=== PATIENT | male | born 1955 | race African-American/Black ===

== ENCOUNTER 2019-01-08 18:57 | Inpatient (IN) ==
[2019-01-08] MEDS ORDERED: ZOFRAN IV ONE (23:10)
[2019-01-08] MEDS ORDERED: DILAUDID IV ONE (23:10)
[2019-01-08 23:57] LABS: BASO# 0.03 X1000 (0.0-0.2); BASO% 0.3 % (0.0-0.8); EOS# 0.31 X1000 (0.0-0.7); HEMATOCRIT 40.5 % (42.0-52.0); HEMOGLOBIN 13.8 g/dL (14.0-18.0); IMM GRAN# 0.03 X1000 (0.0-0.04); IMM GRAN% 0.3 % (0.0-0.5); LYMPH# 1.49 X1000 (1.2-3.4); LYMPH% 14.4 % (20.5-51.1); MCH 29.7 PG (27-31); MCHC 34.1 g/dL (33-37); MCV 87.3 FL (81-99); MONO# 1.39 X1000 (0.11-0.59); MONO% 13.5 % (1.7-9.3); MPV 10.4 FL (7.4-10.4); NEUT# 7.08 X1000 (1.4-6.5); NEUT% 68.5 % (42.2-75.2); PLT 292 X1000 (130-400); RBC 4.64 XMIL (4.7-6.1); RDW 14.5 % (11.5-14.5); WBC 10.33 X1000 (4.8-10.8)
[2019-01-09 00:07] LABS: INR 1.2; PROTIME 15.4 Seconds (11.0-16.0)
[2019-01-09 00:08] LABS: PTT 30.2 Seconds (22.3-41.8)
[2019-01-09 00:13] LABS: AMYLASE 40 U/L (20-200); LIPASE 33 U/L (13-60)
[2019-01-09 00:28] LABS: CREATININE 2.2 mg/dL (0.7-1.2); TOTAL BILIRUBIN 0.56 mg/dL (0.20-1.00); TOTAL PROTEIN 7.8 g/dL (6.3-8.3)
[2019-01-09 00:29] LABS: URINE SOURCE CLEAN CATCH
[2019-01-09 00:29] LABS: ALB/GLOB RATIO 0.6
[2019-01-09 00:55] LABS: BILIRUBIN URINE NEGATIVE (NEGATIVE); BLOOD URINE TRACE (NEGATIVE); COLOR YELLOW; GLUCOSE URINE NEGATIVE (NEGATIVE); KETONE URINE NEGATIVE (NEGATIVE); LEUKOCYTES URINE LARGE (NEGATIVE); NITRITE URINE NEGATIVE (NEGATIVE); PROTEIN URINE 30 mg/dL (NEGATIVE); SP GRAVITY URINE 1.021; TURBIDITY URINE CLEAR (CLEAR); UROBILINOGEN URINE NORMAL (NORMAL)
[2019-01-09 01:09] LABS: UR EPITHELIAL CELLS >10 /HPF (<10); URINE BACTERIA NEGATIVE /HPF; URINE RBC <10 /HPF (<10); URINE WBC TNTC /HPF (<10)
[2019-01-09 01:21] LABS: URINE CASTS GRANULAR PRESENT; URINE CRYSTALS NONE SEEN; URINE SMALL ROUND CELLS NONE SEEN; URINE YEAST NONE SEEN
--- NOTE | 2019-01-09 01:50 | PROVIDER DOCUMENTATION ---
This chart was entered by Eloise Morrison Scribe, acting as scribe for Doc Renee MD. HPI-Rash/Wound/ReCheck - General Chief Complaint: Sores/Lesions Stated Complaint: CELLULITIS IN LEGS Time Seen by Provider: 01/08/19 22:27 Source: patient, family Allergies/Adverse Reactions: Allergies Allergy/AdvReac Type Severity Reaction Status Date / Time No Known Allergies Allergy Verified 05/10/18 19:24 Home Medications: Home Medication List Medication Instructions Recorded Confirmed Last Taken Type Cyclobenzaprine [Flexeril] 10 mg PO TID PRN PRN #60 tab 05/31/18 Unknown Rx Furosemide [Lasix] 40 mg PO DAILY PRN #30 tab 05/31/18 Unknown Rx LISINOpril [Prinivil] 10 mg PO DAILY #30 tab 05/31/18 Unknown Rx Melatonin 3 mg PO HS PRN PRN #30 tab 05/31/18 Unknown Rx Metoprolol [Lopressor] 25 mg PO DAILY #30 tab 05/31/18 Unknown Rx Oxycodone HCl/Acetaminophen 1 ea PO Q6H PRN #30 tab 05/31/18 Unknown Rx [Percocet 7.5-325 mg Tablet] - History of Present Illness-Dermatology Nature of Presenting Problem: 63 yom presents w/family to ed w/cc bilat LE cellultis for approx 1 yr intermittent but becoming worse the past 3 months. pt family sts pt was followed by wound care and cellulitis had cleared up but came back. family sts pt has been using alcohol and paper towels and wraps legs up. pt has refused tx, most recently family called ems and pt refused to go. pt has 1x vomiting episode in e r w/blood and black coffee ground emesis. pt has had gerd today, been belching, family gave pepcid. pt rn rpts when pt stood from wheelchair there was blood in wheelchair, unsure if rectal bleed. pt was in hospital 6-8wks in june. denies n/d, fever and chills. Location: reports: lower extremity (cellulitis LE bilat) Quality: reports: painful Severity: reports: moderate Onset/Duration: reports: other (1 yr intermittent, 3 months became worse) Timing: reports: still present Context/Associated Symptoms: reports: other (cellulitis) Identifiable cause?: Yes Review of Systems - Adult - REVIEW OF SYSTEMS - ADULT Constitutional: reports: no symptoms reported. denies: chills, fever, fatique Eyes: reports: no symptoms reported Ears, Nose, Mouth & Throat: reports: no symptoms reported Cardiovascular: reports: no symptoms reported Respiratory: reports: no symptoms reported Gastrointestinal: reports: see HPI, hematemesis, vomiting, other (bleeding when standing from wheelchair in er, unsure if rectal bleed). denies: abdominal pain, diarrhea, nausea Genitourinary: reports: no symptoms reported Musculoskeletal: reports: no symptoms reported Integumentary: reports: see HPI, other (bilat LE cellulitis). denies: hives, itching, rash Neurological: reports: no symptoms reported Psychiatric: reports: no symptoms reported Endocrine: reports: no symptoms reported Hematologic/Lymphatic: reports: no symptoms reported Allergic/Immunologic: reports: no symptoms reported All Other Systems: Reviewed and Negative Past History - Adult - PAST MEDICAL HISTORY-ADULT Review of Records: reports: Old Records Reviewed, Nursing Assessment Review, Medications Reviewed, Social history reviewed & non-contributory. Major Childhood Illnesses: reports: denies history Cardiovascular: reports: HTN Respiratory: reports: denies history Gastrointestinal: reports: denies history Obstetrical/Gynecological: reports: denies history Genitourinary: reports: denies history Musculoskeletal: reports: other (pitting pedal edema and gout) Neurological: reports: denies history Endocrine/Immune: reports: denies history Other Conditions: reports: denies history - PRIOR SURGERIES/PROCEDURES Surgical/Procedure History: reports: none - IMMUNIZATION STATUS Childhood Immunizations: See Nurse Assessment Flu Vaccine: See Nurse Assessment - FAMILY HISTORY Family History: reviewed, not pertinent - SOCIAL HISTORY Smoking: non-smoker Substance Use: alcohol Alcohol Use Frequency: every day Physical Exam-General - PHYSICAL EXAM-ADULT Initial Vital Signs Reviewed: Yes - CONSTITUTIONAL General Appearance: alert, mild distress. negative: cachetic, lethargic, slow to respond - EYES Eyes: PERRL/EOMI, pink conjunctivae - HEAD, EARS, NOSE, MOUTH & THROAT HENMT: normocephalic/atraumatic, moist mucous membranes, normal ENT inspection - NECK Neck: non-tender, full range of motion, supple, normal inspection - RESPIRATORY Respiratory: chest non-tender, lungs clear, normal breath sounds - CARDIOVASCULAR Cardiovascular: normal peripheral pulses, regular rate, rhythm - GASTROINTESTINAL (ABDOMEN) Abdominal Exam: normal bowel sounds, non tender, soft - GENITOURINARY Rectal Exam: other (+2 skin breakdown on buttocks). negative: normal exam - LYMPHATIC Lymphatic: no adenopathy - MUSCULOSKELETAL Back Exam: normal inspection, no CVA tenderness, no vertebral tenderness Extremity: normal range of motion, erythema (bilat le), inflammation (bilat le), pedal edema (bilat), tenderness (bilat le), other (bilat LE cellulitis). negative: non-tender, normal inspection, abnormal NV exam Peripheral Pulses: radial (R): 2+, radial (L): 2+ - SKIN Integumentary: normal color, normal turgor, warm/dry - NEUROLOGIC Neurologic: grossly normal, no motor/sensory deficits - PSYCHIATRIC Psych/Mental Status: normal mood/affect, normal thought content, normal thought process, oriented x 3, anxious. negative: disheveled, depressed affect, paranoid Progress - PLAN OF CARE/RESULTS Progress/Plan/Lab Results: Vital Signs - 8 hr 01/08/19 19:06 01/08/19 23:13 Temperature 98 F Pulse Rate 64 78 Respiratory Rate 15 20 Blood Pressure 116/74 144/89 O2 Sat by Pulse Oximetry 99 98 01/09/19 01:01 Gastric Occult Blood - Final Gastric Fluid Laboratory Results - last 24 hr 01/08/19 01/08/19 01/08/19 23:28 23:28 23:28 WBC 10.33 RBC 4.64 L Hgb 13.8 L Hct 40.5 L MCV 87.3 MCH 29.7 MCHC 34.1 RDW Std Deviation 14.5 Plt Count 292 MPV 10.4 Immature Gran % (Auto) 0.3 Neut % (Auto) 68.5 Lymph % (Auto) 14.4 L [place] % (Auto) 13.5 H Eos % (Auto) 3.0 Baso % (Auto) 0.3 Immature Gran # (Auto) 0.03 Neut # (Auto) 7.08 H Lymph # (Auto) 1.49 [place] # (Auto) 1.39 H Eos # (Auto) 0.31 Baso # (Auto) 0.03 PT INR PTT (Actin FS) Sodium Potassium Chloride Carbon Dioxide Anion Gap BUN Creatinine Estimated GFR/1.73 m2 BUN/Creatinine Ratio Glucose Calculated Osmolality Calcium Total Bilirubin AST ALT Alkaline Phosphatase Troponin T 0.055 Total Protein Albumin Globulin Albumin/Globulin Ratio Amylase 40 Lipase 33 Urine Source Urine Color Urine Turbidity Urine pH Ur Specific [place] Urine Protein Ur Glucose (Stick) Ur Ketones (Stick) Urine Blood Urine Nitrite Urine Bilirubin Urobilinogen Dipstick Urine Leukocytes Urine WBC (Auto) Urine RBC (Auto) U Epithel Cells (Auto) Urine Bacteria (Auto) Urine Crystals Small Round Cells Urine Casts Urine Yeast-like Cells 01/08/19 01/08/19 01/09/19 23:28 23:28 00:11 WBC RBC Hgb Hct MCV MCH MCHC RDW Std Deviation Plt Count MPV Immature Gran % (Auto) Neut % (Auto) Lymph % (Auto) [place] % (Auto) Eos % (Auto) Baso % (Auto) Immature Gran # (Auto) Neut # (Auto) Lymph # (Auto) [place] # (Auto) Eos # (Auto) Baso # (Auto) PT 15.4 INR 1.20 PTT (Actin FS) 30.2 Sodium 131 L Potassium 4.0 Chloride 93 L Carbon Dioxide 16 L Anion Gap 22 BUN 48 H Creatinine 2.2 H Estimated GFR/1.73 m2 37 BUN/Creatinine Ratio 22 Glucose 73 Calculated Osmolality 274 Calcium 8.0 L Total Bilirubin 0.56 AST 34 ALT 21 Alkaline Phosphatase 101 Troponin T Total Protein 7.8 Albumin 3.0 L Globulin 4.8 Albumin/Globulin Ratio 0.6 Amylase Lipase Urine Source CLEAN CATCH Urine Color YELLOW Urine Turbidity CLEAR Urine pH 6.0 Ur Specific [place] 1.021 Urine Protein 30 A Ur Glucose (Stick) NEGATIVE Ur Ketones (Stick) NEGATIVE Urine Blood TRACE A Urine Nitrite NEGATIVE Urine Bilirubin NEGATIVE Urobilinogen Dipstick NORMAL Urine Leukocytes LARGE A Urine WBC (Auto) TNTC A Urine RBC (Auto) <10 U Epithel Cells (Auto) >10 A Urine Bacteria (Auto) NEGATIVE Urine Crystals NONE SEEN Small Round Cells NONE SEEN Urine Casts GRANULAR PRESENT Urine Yeast-like Cells NONE SEEN Orders Category Date Time Status AMYLASE [CHEM] Stat Lab 01/08/19 23:28 Completed CBC WITH DIFF [HEME] Stat Lab 01/08/19 23:28 Completed COMPREHENSIVE METABOLIC PANEL [CHEM] Stat Lab 01/08/19 23:28 Completed LIPASE [CHEM] Stat Lab 01/08/19 23:28 Completed OCCULT BLOOD NON-FECES Stat Lab 01/09/19 01:01 Completed PROTIME WITH INR [COAG] Stat Lab 01/08/19 23:28 Completed PTT [COAG] Stat Lab 01/08/19 23:28 Completed TROPONIN T Stat Lab 01/08/19 23:28 Completed URINALYSIS W/POSS RFLX CULT [URINALYSIS] Stat Lab 01/09/19 00:11 Completed URINE CULTURE [RM] Routine Lab 01/09/19 01:11 Received URINE MANUAL MICROSCOPIC [URINALYSIS] Stat Lab 01/09/19 00:11 Completed Hydromorphone [Dilaudid] Med 01/08/19 23:10 Discontinued 1 mg IV NOW ONE Ondansetron [Zofran] Med 01/08/19 23:10 Discontinued 4 mg IV NOW ONE EKG [EKG] Stat Ther 01/08/19 22:29 Ordered Result Diagrams: 01/08/19 23:28 01/08/19 23:28 - CONSULTS/PCP/HOSPITALIST Notification #1 *Consult/PCP/Hospitalist*: Dr Kenny Time Discussed: 01:48 Consult Disposition: Will see in ED, Admit Departure - Departure Date of Disposition Decision: 01/09/19 Time of Disposition Decision: 01:48 DIAGNOSIS: Cellulitis, UTI (urinary tract infection), Renal insufficiency, Hyponatremia, Decubitus ulcer, GI bleeding Disposition: ADMITTED INPATIENT 09 Certified Medical Emergency: Emergent Condition: Fair Referrals and Follow-Ups: Delmer Platt MD [Primary Care Provider] - - Critical Care Note This patient required my direct & personal management of CC.: Yes Attestation - Physician/ JOLLY Attestation Patient care was provided by Advanced Practice Provider:: No The physician spent face to face time with patient:: Yes Advanced Practice Provider documentation review:: Supervising physician onsite and consulted in the evaluation and care of this patient. The physician did have a face to face encounter with the patient. This chart was documented by the indicated scribe, (Eloise Morrison Scribe) and accurately reflects the services I performed and decisions made by me, Doc Renee MD, as attested by the provider's signature.
[2019-01-09] MEDS ORDERED: SODIUM CHLORIDE 0.9% INJ ONE (01:51)
[2019-01-09] MEDS ORDERED: PROTONIX IV ONE (01:51)
--- NOTE | 2019-01-09 03:50 | HISTORY AND PHYSICAL ---
PRIMARY CARE PHYSICIAN: None. CHIEF COMPLAINT: Lower extremity edema and tenderness. HISTORY OF PRESENTING ILLNESS: A 63-year-old male with a history of hypertension had presented to emergency department with 6 months history of worsening lower extremity edema and erythema. The patient apparently moved from [place] and apparently has not been able to find a doctor. However, he has been going to Wound Care, he states and they had him put on compression stockings. He was evaluated in the emergency department. It seems that he had moderate edema and possibly venous stasis. It seems that his skin has sloughed off from his lower extremity and seems to be infected. Due to his presenting symptoms, he will require admission for further management. At the time of my examination, he had denied any headache, fever, chills, chest pain, shortness of breath or any weight changes, but complained of lower extremity edema and tenderness. PAST MEDICAL HISTORY: Includes hypertension. PAST SURGICAL HISTORY: None. ALLERGIES: No known drug allergies. CURRENT MEDICATIONS: He does not recall and nursing staff will reconcile. SOCIAL HISTORY: No history of smoking. Admits to social alcohol use. Denies any illicit drug use. FAMILY HISTORY: No history of coronary artery disease. REVIEW OF SYSTEMS: Fourteen point review of systems as listed in HPI. Other systems negative. PHYSICAL EXAMINATION: GENERAL: Cooperative, friendly male. He is resting comfortably now. VITAL SIGNS: Temperature 98.0 degrees, pulse 64 respiration 15, blood pressure 116/74. HEENT: Atraumatic, normocephalic. Extraocular movements intact. PERRLA. NECK: No masses. CHEST: Clear to auscultation. CARDIOVASCULAR: Regular rate and rhythm. ABDOMEN: Soft. Positive bowel sounds. EXTREMITIES: Moderate edema and erythema. Seems that the skin has sloughed off his legs. GENITOURINARY: No bladder distention. SKIN: Warm. LABORATORIES AND STUDIES: WBC 10.33, hemoglobin 13.8, hematocrit 40.5, platelets 292,000. Sodium 141, potassium 4.0, chloride 93, CO2 is 16, BUN is 48, creatinine is 2.2, glucose is 73. ASSESSMENT: A 63-year-old male with a history of hypertension who had presented to emergency department with a 6-month history of worsening lower extremity edema and erythema. It seems that his skin has sloughed off of his legs and this seems infected also. Due to his presenting symptoms, he will require admission for further management. 1. Bilateral lower extremity cellulitis and edema. 2. Hypertension. 3. Acute kidney injury. PLAN: 1. We will admit patient to medical floor with telemetry. 2. We will check wound cultures. Start patient on IV antibiotics. 3. We will consult Wound Care. 4. We will monitor blood pressure closely. 5. We will monitor his renal function. Continue with gentle hydration. 6. We will continue to follow, and reassess and make further recommendation based on patient's clinical course. cc: Gerald Kenny MD
[2019-01-09] MEDS ORDERED: LASIX PO PRN (06:12)
[2019-01-09] MEDS ORDERED: VANCOMYCIN IV PER PHARMACY MISC SCH (06:12)
[2019-01-09] MEDS: PERCOCET-5 PO PRN (07:04)
[2019-01-09] MEDS: NS 1,000 ML IV SCH ×2 (07:05→21:52)
[2019-01-09] MEDS: ROCEPHIN 1 GM in NS 50 ML IV SCH (07:05)
[2019-01-09] MEDS ORDERED: VANCOMYCIN 2,300 MG in NS 500 ML IV ONE (09:00)
[2019-01-09] MEDS: LOPRESSOR PO SCH (09:33)
[2019-01-09] MEDS: PRINIVIL PO SCH (09:33)
[2019-01-09] MEDS ORDERED: DILAUDID IV STA (10:39)
[2019-01-09] MEDS ORDERED: NS 500 ML IV ONE (17:20)
[2019-01-09] MEDS ORDERED: NS 500 ML ONE (17:22)
[2019-01-10] MEDS: PERCOCET-5 PO PRN ×3 (00:14→20:12)
[2019-01-10] MEDS ORDERED: NS 250 ML IV ONE (05:14)
[2019-01-10] MEDS: ROCEPHIN 1 GM in NS 50 ML IV SCH (06:37)
[2019-01-10 07:22] LABS: BASO# 0.03 X1000 (0.0-0.2); BASO% 0.4 % (0.0-0.8); EOS# 0.42 X1000 (0.0-0.7); EOS% 5.3 % (0.0-10.0); HEMATOCRIT 31.1 % (42.0-52.0); HEMOGLOBIN 10.7 g/dL (14.0-18.0); IMM GRAN# 0.02 X1000 (0.0-0.04); IMM GRAN% 0.3 % (0.0-0.5); LYMPH# 1.13 X1000 (1.2-3.4); LYMPH% 14.2 % (20.5-51.1); MCH 30.2 PG (27-31); MCHC 34.4 g/dL (33-37); MCV 87.9 FL (81-99); MONO# 1.17 X1000 (0.11-0.59); MONO% 14.7 % (1.7-9.3); MPV 10.2 FL (7.4-10.4); NEUT# 5.18 X1000 (1.4-6.5); NEUT% 65.1 % (42.2-75.2); PLT 266 X1000 (130-400); RBC 3.54 XMIL (4.7-6.1); RDW 14.3 % (11.5-14.5); WBC 7.95 X1000 (4.8-10.8)
[2019-01-10 07:28] LABS: CALCIUM 7.5 mg/dL (8.8-10.2); CREATININE 1.8 mg/dL (0.7-1.2)
[2019-01-10] MEDS: PRINIVIL PO SCH (10:10)
[2019-01-10] MEDS: LOPRESSOR PO SCH ×2 (10:17→16:29)
[2019-01-10] MEDS ORDERED: KLOR-CON PO ONE (10:49)
[2019-01-10] MEDS ORDERED: TEFLARO IV SCH (11:00)
--- NOTE | 2019-01-10 13:54 | PROGRESS NOTE ---
DATE: 01/10/2019 SUBJECTIVE: The patient reports feeling better. Denies any fever or chills. OBJECTIVE: Vital Signs: Temperature 97.4 degrees, heart rate 79, respiratory rate 22, blood pressure 102/48, O2 saturation 95% on room air. General: This is a chronically ill-appearing and obese 63-year-old male lying in bed, in no acute distress. Cardiovascular: S1, S2 heard. No murmurs, gallops, or rubs. Regular rate and rhythm. Respiratory: Clear bilaterally to auscultation. No work of breathing or using accessory muscles. Abdomen: Soft, nontender to palpation. Bowel sounds present. No organomegaly. Extremities: Moderate edema and erythema in both lower extremities. Those are covered by dressing right now. Peripheral pulses present. Neurological: Patient alert, oriented x3. Moves 4 extremities. LABORATORY DATA: Showed white cell count 7.97, hemoglobin 10.7, hematocrit 31.1, platelets 266,000. Potassium 3.0, sodium 131, creatinine 1.8. ASSESSMENT AND PLAN: 1. Bilateral lower extremity cellulitis and edema. I have changed antibiotics. In this case, the patient has been on vancomycin and ceftriaxone. Because of the renal function, I changed to Teflaro and Zosyn renally dosed both medications. We will continue with the same management. 2. Acute kidney injury getting better. We are going to avoid any nephrotoxic medications. I will adjust antibiotics accordingly. 3. Hypertension. Blood pressure is under control. Actually it is borderline in the 100s, some 90s so we are not going to make any changes to his current treatment. 4. Disposition. We will continue to monitor this patient closely. cc: Marshal Paulson MD
[2019-01-10] MEDS: NS 1,000 ML IV SCH (14:33)
[2019-01-10] MEDS: ZOSYN 2.25 GM in NS 50 ML IV SCH ×2 (14:34→20:17)
[2019-01-10] MEDS: TEFLARO 400 MG in NS 250 ML IV SCH (14:35)
[2019-01-10] MEDS ORDERED: VANCOMYCIN 2,000 MG in NS 500 ML IV SCH (21:00)
[2019-01-11] MEDS: TEFLARO 400 MG in NS 250 ML IV SCH (00:45)
[2019-01-11] MEDS: ZOSYN 2.25 GM in NS 50 ML IV SCH ×2 (02:24→09:58)
[2019-01-11] MEDS: PERCOCET-5 PO PRN ×3 (02:24→22:08)
[2019-01-11] MEDS: LOPRESSOR PO SCH ×4 (03:08→20:29)
[2019-01-11 06:59] LABS: HEMATOCRIT 30.7 % (42.0-52.0); HEMOGLOBIN 10.4 g/dL (14.0-18.0); MCH 30.1 PG (27-31); MCHC 33.9 g/dL (33-37); MPV 9.9 FL (7.4-10.4); RBC 3.45 XMIL (4.7-6.1); RDW 14.5 % (11.5-14.5); WBC 6.61 X1000 (4.8-10.8)
[2019-01-11 07:26] LABS: AGAP 9; BUN 36 mg/dL (8-22); CALCIUM 8.1 mg/dL (8.8-10.2); CHLORIDE 113 mmol/L (98-107); COSMO 287; CREATININE 1.1 mg/dL (0.7-1.2); ESTIMATED GFR > 60; GLUCOSE 113 mg/dL (70-104); POTASSIUM 3.9 mmol/L (3.5-5.1); SODIUM 139 mmol/L (136-145); TCO2 17 mmol/L (25-35)
[2019-01-11] MEDS: NS 1,000 ML IV SCH ×3 (09:56→22:11)
--- NOTE | 2019-01-11 11:14 | PROGRESS NOTE ---
DATE: 01/11/2019 SUBJECTIVE: The patient reports feeling fine. He does reports some muscle cramping that started yesterday. OBJECTIVE: Vital Signs: Temperature 98.5, heart rate 77, respiratory rate 20, blood pressure 106/55, O2 saturation 95% on room air. General Examination: This is a chronically ill-appearing and morbidly obese, 63-year-old, male, lying in bed, in no acute distress. HEENT: Head is normocephalic and atraumatic. Cardiovascular Examination: S1 and S2 heard. No murmurs, gallops, or rubs. Regular rate and rhythm. Respiratory Examination: Clear bilaterally to auscultation. No work of breathing or using accessory muscles. Abdomen: Soft, nontender to palpation. Bowel sounds present. No organomegaly. Extremities: Moderate edema and erythema in both lower extremities. Those are covered by dressings now. Peripheral pulses present. Neurological Examination: The patient is alert and oriented x3. Moves 4 extremities. Laboratory Data: Reviewed. Hemoglobin is 10.4, hematocrit 30.7. BMP that shows normal renal function. ASSESSMENT AND PLAN: 1. Bilateral lower extremity cellulitis and edema. The patient is on Teflaro and Zosyn, both renally dosed. Because renal function is back to normal, I think we are going to change to full doses of both medications. 2. Acute kidney injury, resolved. 3. Hypertension. Blood pressure is under control. We will continue with the same management. 4. Disposition. At this point, considering his extensive cellulitis, I prefer to go ahead and consult infectious disease to see for how long he is going to need antibiotics and also if followup in the office is needed. cc: Marshal Paulson MD
[2019-01-11] MEDS ORDERED: TEFLARO 600 MG in NS 250 ML IV SCH (13:00)
--- NOTE | 2019-01-11 15:35 | INFECTIOUS DISEASE CONSULT REP ---
DATE: 01/11/[address] the white mccormick CONCLUSION: Patient is admitted the hospital with bilateral cellulitis. RECOMMENDATIONS: I have discontinued ceftaroline and Zosyn and instead I put the patient on a combination of p.o. Zyvox and IV cefepime pending culture results. I have ordered that culture should be taken from each leg. Also I have ordered for the foot of the bed to remain elevated with the manual Gatch continuously. Finally, I have requested that the nurses page me so I can see the patient's next dressing change. DISCUSSION: The patient has a 6 month history of bilateral leg cellulitis. He came to the emergency room and he was hospitalized at [facility]. His CBC shows a white count of 6610, hemoglobin 10.4, and platelet count 261,000. Creatinine is 1.1. GFR is greater than 60. Urine culture was negative. PAST MEDICAL HISTORY/REVIEW OF SYSTEMS: Eyes and ears: He does not have any problems seeing or hearing. Neck: No stiffness. Respiratory: No cough or shortness of breath. Cardiac: No chest pain or palpitations. GI: No nausea, vomiting, or diarrhea. : No dysuria or flank pain. Bones, joints and muscles: See present illness. Neurologic: No seizures. No loss of motor or sensory function. PREVIOUS HOSPITALIZATIONS AND OPERATIONS: He has been admitted before with leg cellulitis. MEDICAL DISEASES: Patient has obesity and hypertension. INFECTIOUS DISEASE HISTORY: Positive for leg cellulitis. Negative for pneumonia. FAMILY HISTORY: Positive for diabetes mellitus, hypertension and myocardial infarction. SOCIAL HISTORY: The patient lives with his daughter. He is . 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 He told me that he drinks alcoholic beverages but he does not smoke cigarettes or abuse drugs. ALLERGIES: He has no known drug allergies. MEDICATIONS: Taken at home include Lasix, gabapentin, Prinivil, loratadine, Lopressor and oxycodone. PHYSICAL EXAMINATION: Vital Signs: Temperature is 98.2 degrees, pulse 75, respirations 14, blood pressure 125/67. The patient is 5 feet 11 inches tall, weighs 270 pounds. General: This is an obese, middle-aged male. He is in no acute distress. Head/eyes/ears/nose/throat: He can hear my spoken words and see near objects. I do not see any white patches in his mouth. Neck: No meningismus. Lungs: Clear to auscultation. Cardiovascular: Heart rate is regular. Abdomen: Soft and nontender. In the right lower quadrant, there is some scarring due to trauma. Extremities: Both legs have dressings on them. The dressings are intact. As I mentioned earlier, I have requested the nurses to page me tomorrow when the patient's legs and legs when the patient's legs dressings are changed. Neurologic: The patient is alert. He can move his extremities. There is no tremor. His sensation is intact to touch. His memory as regarding his medical history seemed to be intact. Thank you for the consult. cc: Santiago Gao MD
[2019-01-11] MEDS ORDERED: ZOSYN 3.375 GM in NS 50 ML IV SCH (16:00)
[2019-01-11] MEDS: MAXIPIME 2 GM in NS 100 ML IV SCH (16:04)
[2019-01-11] MEDS: ZYVOX PO SCH (18:53)
[2019-01-12] MEDS: PERCOCET-5 PO PRN ×3 (01:56→23:29)
[2019-01-12] MEDS: NS 1,000 ML IV SCH ×2 (03:31→18:34)
[2019-01-12] MEDS: MAXIPIME 2 GM in NS 100 ML IV SCH ×2 (03:37→16:34)
[2019-01-12] MEDS: ZYVOX PO SCH ×2 (06:18→16:34)
[2019-01-12 06:41] LABS: HEMATOCRIT 34.1 % (42.0-52.0); HEMOGLOBIN 11.2 g/dL (14.0-18.0); MCH 30.5 PG (27-31); MCHC 32.8 g/dL (33-37); MCV 92.9 FL (81-99); MPV 9.9 FL (7.4-10.4); RBC 3.67 XMIL (4.7-6.1); RDW 14.9 % (11.5-14.5); WBC 5.75 X1000 (4.8-10.8)
[2019-01-12 06:56] LABS: AGAP 7; BUN 23 mg/dL (8-22); CALCIUM 8.4 mg/dL (8.8-10.2); CHLORIDE 112 mmol/L (98-107); COSMO 277; CREATININE 0.8 mg/dL (0.7-1.2); ESTIMATED GFR > 60; GLUCOSE 82 mg/dL (70-104); POTASSIUM 4.2 mmol/L (3.5-5.1); SODIUM 137 mmol/L (136-145); TCO2 18 mmol/L (25-35)
[2019-01-12] MEDS: LOPRESSOR PO SCH ×2 (10:14→18:34)
[2019-01-12] MEDS ORDERED: DILAUDID IV PRN (13:21)
[2019-01-12] MEDS: DILAUDID IV PRN (13:45)
--- NOTE | 2019-01-12 16:23 | PROGRESS NOTE ---
DATE: 01/12/2019 SUBJECTIVE: Patient reports feeling fine. Reports some muscle cramping today. OBJECTIVE: Vital Signs: Temperature 97.9 degrees, heart rate 75, respiratory 19, blood pressure 100/30, O2 saturation 97% on room air. General: This is a chronically ill-appearing morbidly obese 63-year-old male lying in bed in no acute distress. Cardiovascular: S1, S2 heard. No murmurs, gallops, or rubs. Regular rate and rhythm. Respiratory: Clear bilaterally to auscultation. No work of breathing or using accessory muscles. Abdomen: Soft, nontender to palpation. Bowel sounds present. No organomegaly. Extremity: Moderate edema and erythema in both lower extremity covered by dressing now, peripheral pulses present in both feet. Neurologic: Patient alert, oriented x3. Moves 4 extremities. LABORATORY DATA: Reviewed. ASSESSMENT AND PLAN: 1. Bilateral lower extremity cellulitis and edema. Infectious disease has been consulted and they changed antibiotics to cefepime and Zyvox p.o. will continue with same management. Will check with them tomorrow to see for how long he needs to stay in the hospital. 2. Acute kidney injury resolved. 3. Hypertension. Blood pressure is under control. Will continue with same management. 4. Disposition. At this point will continue with the same antibiotics directed by ID and will check with them for how long he needs to be on those. cc: Marshal Paulson MD
[2019-01-12] MEDS: ROBAXIN PO SCH (18:35)
[2019-01-13] MEDS: NS 1,000 ML IV SCH ×3 (01:19→19:58)
[2019-01-13] MEDS: MAXIPIME 2 GM in NS 100 ML IV SCH ×2 (03:33→17:10)
[2019-01-13] MEDS: ZYVOX PO SCH ×2 (05:07→17:11)
[2019-01-13] MEDS: DILAUDID IV PRN (06:52)
[2019-01-13 07:05] LABS: HEMATOCRIT 30.7 % (42.0-52.0); HEMOGLOBIN 10.2 g/dL (14.0-18.0); MCHC 33.2 g/dL (33-37); MCV 93.3 FL (81-99); MPV 9.7 FL (7.4-10.4); RBC 3.29 XMIL (4.7-6.1); RDW 14.9 % (11.5-14.5); WBC 5.85 X1000 (4.8-10.8)
[2019-01-13 07:15] LABS: AGAP 5; BUN 17 mg/dL (8-22); CALCIUM 8.1 mg/dL (8.8-10.2); CHLORIDE 114 mmol/L (98-107); COSMO 277; CREATININE 0.8 mg/dL (0.7-1.2); ESTIMATED GFR > 60; GLUCOSE 88 mg/dL (70-104); POTASSIUM 4.2 mmol/L (3.5-5.1); SODIUM 138 mmol/L (136-145); TCO2 19 mmol/L (25-35)
[2019-01-13] MEDS: ROBAXIN PO SCH ×3 (10:08→17:10)
[2019-01-13] MEDS: LOPRESSOR PO SCH ×3 (10:12→20:23)
--- NOTE | 2019-01-13 14:00 | PROGRESS NOTE ---
DATE: 01/13/2019 SUBJECTIVE: The patient reports feeling fine. Muscle cramps are much better now. OBJECTIVE: Vital Signs: Temperature 98.0, heart rate 70, respiratory rate 18, blood pressure 120/66, O2 saturation 97% on room air. General Examination: This is a chronically ill-appearing, 63-year-old, male, lying in bed, in no acute distress. Cardiovascular Examination: S1 and S2 heard. No murmurs, gallops, or rubs. Regular rate and rhythm. Respiratory Examination: Clear bilaterally to auscultation. No work of breathing or using accessory muscles. Abdomen: Soft, nontender to palpation. Bowel sounds present. No organomegaly. Extremities: Moderate edema and erythema in both lower extremities. Those are covered by dressings right now. Peripheral pulses present in both feet. Neurological Examination: The patient is alert and oriented x3. Moves 4 extremities. Laboratory Data: Reviewed. ASSESSMENT AND PLAN: 1. Bilateral lower extremity cellulitis and edema. I talked with Dr. Gao today about further plans for this patient. Currently, he is on cefepime and Zyvox. Yesterday, we took cultures from both wounds and gram-positive cocci are growing. Our plan is to wait until tomorrow to see what kind of bacteria is growing and then we will come up with a plan on what antibiotics we are going to use and for how long, so we are planning to most likely discharge him tomorrow. 2. Acute kidney injury, resolved. 3. Hypertension. Blood pressure is well controlled with current management. We are not going to make any changes. 4. Disposition. I think at this point, we have a plan to wait for wound cultures to see what bacteria they show and we will go from there. cc: Marshal Paulson MD
[2019-01-13] MEDS: MORPHINE IV PRN ×2 (15:01→20:00)
[2019-01-14] MEDS: MORPHINE IV PRN ×4 (00:47→20:24)
[2019-01-14] MEDS: PERCOCET-5 PO PRN ×2 (03:43→21:46)
[2019-01-14] MEDS: MAXIPIME 2 GM in NS 100 ML IV SCH ×2 (03:45→15:39)
[2019-01-14] MEDS: ZYVOX PO SCH ×2 (05:05→17:28)
[2019-01-14] MEDS: ROBAXIN PO SCH ×3 (09:02→17:28)
[2019-01-14] MEDS: LOPRESSOR PO SCH ×3 (09:02→20:31)
[2019-01-14] MEDS: NS 1,000 ML IV SCH ×2 (09:02→22:25)
--- NOTE | 2019-01-14 10:41 | PROGRESS NOTE ---
DATE: 01/14/2019 SUBJECTIVE: Patient reports feeling fine. Still some muscle cramps noted but his cramps are better. OBJECTIVE: Vital Signs: Temperature 97.8 degrees, heart rate 107, respiratory rate 22, blood pressure 126/68, O2 saturation 99% on room air. General: This is a chronically ill-appearing 63- year-old male, lying in bed, in no acute distress. HEENT: Head is normocephalic, atraumatic. Neck: No JVD noted. No carotid bruits. No lymphadenopathy. No thyromegaly. Cardiovascular: S1, S2 heard. No murmurs, gallops, or rubs. Regular rate and rhythm. Respiratory: Clear bilaterally to auscultation. No work of breathing or using accessory muscles. Abdomen: Soft, nontender to palpation. Bowel sounds present. No organomegaly. Extremities: Moderate edema and erythema in both lower extremities. Those are covered by dressings right now. Peripheral pulses present in both feet. Neurological: Patient alert oriented x3. Moves 4 extremities. LABORATORY DATA: Wound culture pending. ASSESSMENT/PLAN: 1. Bilateral lower extremity cellulitis and edema. Patient currently on Zyvox and Cefepime. I checked on wound cultures today and those are still pending. I checked with micro and apparently those will be ready for tomorrow because they will they were redo. Once we know the results of the wound culture pain will tailor our antibiotic therapy. Then, I think patient will be discharged tomorrow. 2. Acute kidney injury resolved. 3. Hypertension. Blood pressure is controlled with current medications. At this point, we are not going to make any changes. 4. Disposition. I think once we have results of wound culture patient will be released from the hospital. cc: Marshal Paulson MD
[2019-01-14] MEDS: LASIX PO SCH (12:36)
--- NOTE | 2019-01-14 14:43 | INFECTIOUS DISEASE PROGRESS NO ---
DATE: 01/14/2019 PRESENT ILLNESS: The patient has bilateral leg cellulitis. MEDICATIONS: The patient is receiving cefepime. PHYSICAL EXAMINATION: Vital Signs: Temperature is 98 degrees, pulse 100, respirations 22, blood pressure 120/60. General: This is an obese but otherwise healthy-appearing, middle-aged male. He is in no acute distress. Head, eyes, ears, nose, and throat: He can hear my spoken words and see near objects. There is no drainage from the nose or ears. Neck: No pain with movement of the neck. Lungs: Clear to auscultation. Cardiovascular: Heart rate is regular. Abdomen: Soft and nontender. Extremities: Both legs have large dressings around them. The dressings are intact. Neurologic: Patient is alert. He can move his extremities. There is no tremor. LABORATORY AND X-RAY: There is no new radiographic study. The CBC shows a white blood cell count of 585, a hemoglobin of 10.2, and a platelet count of 245,000. Creatinine is 0.8, GFR is greater than 60. The right leg is growing a gram-positive coccus. The left leg a gram- negative ld. ASSESSMENT AND PLAN: Patient has cellulitis of both legs. For now, I am going to continue cefepime pending the results of culture from both legs. COMORBIDITIES: The patient is obese and he has chronic leg edema. cc: Santiago Gao MD [facility]
[2019-01-15] MEDS: MORPHINE IV PRN ×2 (01:27→05:21)
[2019-01-15] MEDS: PERCOCET-5 PO PRN (04:49)
[2019-01-15] MEDS: ZYVOX PO SCH ×2 (04:50→06:05)
[2019-01-15] MEDS: MAXIPIME 2 GM in NS 100 ML IV SCH (04:51)
[2019-01-15 07:36] VITALS: BP 125/66
[2019-01-15] MEDS: LASIX PO SCH (08:28)
[2019-01-15] MEDS: LOPRESSOR PO SCH ×2 (08:28→14:16)
[2019-01-15] MEDS: ROBAXIN PO SCH ×2 (08:28→14:16)
[2019-01-15] MEDS ORDERED: MAXIPIME 2 GM in NS 100 ML IV SCH (12:00)
[2019-01-15] MEDS ORDERED: PNEUMOVAX 23 IM ONE (12:10)
[2019-01-15] MEDS: DILAUDID IV PRN (14:27)
--- NOTE | 2019-01-15 14:49 | DISCHARGE SUMMARY ---
ADMISSION DATE: 01/09/2019 DISCHARGE DATE: 01/15/2019 ADMISSION DIAGNOSES: 1. Bilateral lower extremity cellulitis and edema. 2. Hypertension. 3. Acute kidney injury. DISCHARGE DIAGNOSES: 1. Bilateral lower extremity cellulitis and edema on Zyvox and cefepime with a culture result of staph aureus and Pseudomonas aeruginosa. The Staph aureus was resistant to erythromycin and penicillin and it is oxacillin sensitive. The Pseudomonas aeruginosa is thomas sensitive. 2. Acute kidney injury, resolved. 3. Hypertension, controlled. CONSULTATIONS: Dr. Gao. SURGERIES AND PROCEDURES: None. HOSPITAL COURSE: On the late hours of 01/08/2019, Mr. Jer Lemus, a 63-year-old male at the time presented with complaints of lower extremity edema and tenderness. Today is his birthday so he turned 64 today but apparently he had been having a 6-month history of worsening lower extremity edema. He was fully admitted on the . He is here from [place] and has not found a doctor yet. He has been going to wound care and they put him on compression stockings. Evaluation in the emergency department seems to be that he has moderate edema and venous stasis with an appearance of cellulitis. White count was not elevated. He did have open wounds which were cultured and came back positive for Pseudomonas aeruginosa and oxacillin sensitive Staphylococcus aureus. He was initially started on broad-spectrum antibiotics and Dr. Gao was consulted. The ceftaroline and Zosyn was discontinued and then he put the patient on p.o. Zyvox and IV cefepime. Wound Care first dressing changes mentioned that there was a large amount of serous drainage. Wounds were sprayed with wound office cleaner which caused the patient to scream in pain so patient was medicated with pain medication for dressing changes. There was noted to be stage II pressure ulcers to bilateral ischial tuberosities. Triad was applied to those sites and there was a red rash to the right abdominal fold where triad was also applied. Mepilex was applied to the 2 pressure spots and compression bandages were applied. Later on, the wounds appeared to have healthy granulation tissue. The edema had improved. There is still moderate amount of serous drainage. Small amount of bleeding with removal of the dressing and Dr. Gao had obtained a culture. All the dressings were reapplied. Of course, IV Dilaudid was used to help with the pain during dressing changes. He also had to keep his legs raised to keep the swelling down. Otherwise he stayed here for a while to help keep the wounds clean and on the healing process. He was going to go home on Keflex. I will give 500 mg 3 times a day for 10 days. He will also get Levaquin 500 mg daily for 10 days and the Percocet is what he will have for pain control with dressing changes. OBJECTIVE: Vital Signs: Temperature 97.5 degrees, heart rate 60, respiratory rate 19, blood pressure 125/66, O2 saturation 100% on room air. LABORATORY DATA: White blood cells 5000, hemoglobin 10, hematocrit 30, platelet count 245,000, sodium 138, potassium 4.2, BUN 17, creatinine 0.8, glucose 88, calcium 8.1. IMAGING: None. MEDICATIONS: 1. Neurontin 400 mg p.o., frequency not determined. 2. Metoprolol 25 mg p.o. t.i.d. 3. Loratadine 30 mg p.o. daily. 4. Keflex 500 mg p.o. t.i.d. for 10 days. 5. Levaquin 500 mg p.o. daily for 10 days. 6. 40 mg of Lasix p.o. daily as needed. 7. Percocet 1 tablet p.o. every 6 hours p.r.n. 8. Lisinopril 10 mg p.o. daily. 9. Robaxin 500 mg p.o. t.i.d. p.r.n. DIET: Healthy heart. ACTIVITY: He was with physical therapy here. Activity as tolerated. PHYSICIAN FOLLOWUPS: Eduard Mclain, Nurse Practitioner, on 01/22/2019 at [address] Goa. DISCHARGE INSTRUCTIONS: Keep leg dressings clean and dry. Dressings to be changed by home health nurses. Take pain medication 30 to 40 minutes before scheduled dressing changes to minimize pain. If her condition changes, contact physician and/or return to emergency department. Changes may include but are not limited to shortness of breath, increased fatigue, excessive bleeding, unexplained weight loss or gain, unmanageable pain, signs or symptoms of infection. DISCHARGE DISPOSITION: Home with home health. Dictated by MANNY Mitchell for Marshal Paulson MD Addendum: Patient seen and examined by myself. Agree with MANNY note. It reflects my assessment and plan. Patient is being discharged in stable condition. Will be followed by Home health. cc: MANNY Mitchell MD [facility]
== END 2019-01-15 16:17 | disposition home health service (06) | DRG 603 ==
LOC: ED 18:57 → 3N 01-09 03:32 → SUATTDRO 01-09 03:32
PROVIDERS: ATTEND Internal Medicine